=== PATIENT | female | born 1925 | race Caucasian/White ===

== ENCOUNTER 2016-06-27 12:13 | Inpatient (IN) | payer OTHER, MEDICARE ==
[~2016-06-27] VITALS: Ht 160 cm; Wt 61.3 kg
[2016-06-27 12:15] VITALS: BP 152/64; PULSE 72; RESP 16; TEMP 97.8; O2SAT 99
--- NOTE | 2016-06-27 12:19 | PD ---
Physical Exam Time Seen by Provider: 12:17 Narrative 89 y/o female presents for evaluation of an episode of dizziness which caused her to fall today. She is complaining of R ankle pain/deformity. Vital signs reviewed. Seen at triage desk. Awaiting bed placement. Data Data Last Documented VS Vital Signs Date Time Temp Pulse Resp B/P Pulse Ox O2 Delivery O2 Flow Rate FiO2 06/27/16 12:15 97.8 72 16 152/64 99 MDM Medical Record Reviewed: Yes Supervised Visit with WILLIAM: Gen Groves June 27, 2016 12:18
[2016-06-27 12:37] VITALS: BP 165/73; PULSE 69; RESP 18; O2SAT 100
--- NOTE | 2016-06-27 12:42 | PD ---
HPI Chief Complaint: Fall Time Seen by Provider: 12:36 Travel History International Travel<30 days: No Contact w/Intl Traveler<30days: No Traveled to known affect area: No History of Present Illness HPI Patient comes emergency Department for evaluation of right ankle injury that occurred shortly prior to arrival. Patient states she been standing for couple hours he got she dizzy and fell. Denies any loss of consciousness, chest pain, shortness of breath, nausea, vomiting, abdominal pain, headache, back pain, neck pain, being on any blood thinners other than a baby aspirin, or numbness or tingling anywhere. This was a witnessed fall and her friend is with her states that she did not lose consciousness. Patient called EMS who splinted her right ankle prior to her friend bringing her to the emergency department. Patient states that the bone appeared to be sticking out and she popped it back in herself. Patient reports minimal pain with this and does not want anything for pain at the moment. Patient states that the pain is over the lateral aspect of the right ankle without radiation. Patient reports last time she ate or drank anything was about 7:00 this morning. PFSH Past Medical History High Cholesterol: Yes Thyroid Disease: Yes ?: Not Social History Alcohol Use: Yes Tobacco Use: No Substance Use: No Allergies-Medications (Allergen,Severity, Reaction): Coded Allergies: No Known Allergies (Unverified , 06/27/16) Reported Meds & Prescriptions Reported Meds & Active Scripts Active Reported Aspirin Low Dose (Aspirin) 81 Mg Chew 81 Mg CHEW DAILY Levothyroxine (Levothyroxine Sodium) 25 Mcg Tab 25 Mcg PO DAILY Lovastatin 40 Mg Tab 40 Mg PO DAILY Review of Systems Except as stated in HPI: all other systems reviewed are Neg Physical Exam Narrative GENERAL: Well-developed, well nourished, in no acute distress, and non-ill appearing. SKIN: Focused skin assessment warm and dry. HEAD: Atraumatic. Normocephalic. EYES: Pupils equal and round. EOMI. No scleral icterus. No injection or drainage. ENT: No nasal bleeding or discharge. Mucous membranes pink and moist. NECK: Trachea midline. No JVD. Supple. No nuclear rigidity. CARDIOVASCULAR: Regular rate and rhythm. No murmur appreciated. RESPIRATORY: No accessory muscle use. No respiratory distress. Clear to auscultation. Breath sounds equal bilaterally. MUSCULOSKELETAL: Obvious deformities right ankle. No clubbing. No cyanosis. Soft tissue swelling right ankle. Decreased range of motion right ankle. Ankle : Neagative anterior draw and [place] test. Negative Michael's sign. Laxity noted with passive inversion of right ankle ankles. Negative squeeze test. Pulses equal BL distal to injury. Capillary refill less than 2 seconds distal to injury and equal BL. Sensation equal BL 1st web space. FROM of toes distal to injury and equal BL. NV intact distal to injury and equal BL. Dorsal pulses equal BL. Palpable bony deformity noted over the lateral aspect of right ankle. There is no crepitus. NEUROLOGICAL: Awake and alert. No obvious cranial nerve deficits. Motor grossly within normal limits. Normal speech. PSYCHIATRIC: Appropriate mood and affect; insight and judgment normal. Data Data Last Documented VS Vital Signs Date Time Temp Pulse Resp B/P Pulse Ox O2 Delivery O2 Flow Rate FiO2 06/27/16 12:37 69 18 165/73 100 Room Air 06/27/16 12:15 97.8 Orders Electrocardiogram (06/27/16 12:33) Basic Metabolic Panel (Bmp) (06/27/16 12:33) Complete Blood Count With Diff (06/27/16 12:33) Magnesium (Mg) (06/27/16 12:33) Ckmb (Isoenzyme) Profile (06/27/16 12:33) Troponin I (06/27/16 12:33) Act Partial Throm Time (Ptt) (06/27/16 12:33) Prothrombin Time / Inr (Pt) (06/27/16 12:33) Urinalysis - C+S If Indicated (06/27/16 12:33) Chest, Single Ap (06/27/16 12:33) Ct Brain W/O Iv Contrast(Rout) (06/27/16 12:33) Ct Cerv Spine W/O Contrast (06/27/16 12:33) Ecg Monitoring (06/27/16 12:33) Iv Access Insert/Monitor (06/27/16 12:33) Oximetry (06/27/16 12:33) Ankle, Complete ([id number]) (06/27/16 ) Ice/Cold Pack (06/27/16 12:37) Splint Or Brace Apply/Monitor (06/27/16 13:06) Midazolam Inj (Versed Inj) (06/27/16 13:30) Hydromorphone Pf Inj (Dilaudid Pf Inj) (06/27/16 13:30) Ondansetron Inj (Zofran Inj) (06/27/16 13:30) CKMB (06/27/16 12:39) CKMB% (06/27/16 12:39) Sodium Chlorid 0.9% 500 Ml Inj (Ns 500 M (06/27/16 13:45) Ankle, Limited (Ap&Lat) (06/27/16 ) Fiberglass Short Leg Splint Ad (06/27/16 ) Fiberglass Sugartong Sp Ad Sl (06/27/16 ) Place In Observation (06/27/16 ) Vital Signs (Adult) Q4H (06/27/16:) Activity Bed Rest (06/27/16 14:) Bedside Glucose LIBIA.AC&HS (06/27/16:) Metal Tube Cutter / Telemetry .CONTINUOUS (06/27/16:) Intake + Output LIBIA.QSHIFT (06/27/16 14:17) Diet Npo (06/27/16 Dinner) Sodium Chlor 0.9% 1000 Ml Inj (Ns 1000 M (06/27/16 15:00) Sodium Chloride 0.9% Flush (Ns Flush) (06/27/16 14:30) Sodium Chloride 0.9% Flush (Ns Flush) (06/27/16 21:00) Acetaminophen (Tylenol) (06/27/16 14:30) Ondansetron Inj (Zofran Inj) (06/27/16 14:30) Basic Metabolic Panel (Bmp) (06/28/16 06:00) Complete Blood Count With Diff (06/28/16 06:00) Resp Oxygen Rahat C Titrat 1-4 L (06/27/16 ) Heparin Inj (Heparin Inj) (06/27/16 15:00) Scd Bilateral/Knee High LIBIA.BID (06/27/16 14:17) Naloxone Inj (Narcan Inj) (06/27/16 14:30) Creatine Kinase (Cpk) (06/27/16 14:17) Creatine Kinase (Cpk) (06/27/16 20:17) Creatine Kinase (Cpk) (06/28/16 02:17) Ckmb (Isoenzyme) Profile (06/27/16 14:17) Ckmb (Isoenzyme) Profile (06/27/16 20:17) Ckmb (Isoenzyme) Profile (06/28/16 02:17) Troponin I (06/27/16 14:17) Troponin I (06/27/16 20:17) Troponin I (06/28/16 02:17) Echo 2d Comp W/Dopp(Routine) (06/27/16 ) Levothyroxine (Synthroid) (06/28/16 06:00) Pravastatin (Pravachol) (06/28/16 09:00) Enalaprilat Inj (Vasotec Inj) (06/27/16 14:30) Admit Order (Ed Use Only) (06/27/16 14:17) Acetamin-Hydrocod 325-5 Mg ([place]idden 5-325 (06/27/16 14:30) Acetamin-Hydrocod 325-7.5 Mg ([place]idden 7.5 (06/27/16 14:30) Morphine Inj (Morphine Inj) (06/27/16 14:30) Morphine Inj (Morphine Inj) (06/27/16 14:30) Us Carotid Arteries Comp Bilat (06/27/16 ) Labs Laboratory Tests Test 06/27/16 06/27/16 12:39 14:13 White Blood Count 6.0 TH/MM3 Red Blood Count 4.27 MIL/MM3 Hemoglobin 12.3 GM/DL Hematocrit 36.6 % Mean Corpuscular Volume 85.6 FL Mean Corpuscular Hemoglobin 28.9 PG Mean Corpuscular Hemoglobin 33.7 % Concent Red Cell Distribution Width 14.7 % Platelet Count 249 TH/MM3 Mean Platelet Volume 8.3 FL Neutrophils (%) (Auto) 67.4 % Lymphocytes (%) (Auto) 24.1 % Monocytes (%) (Auto) 6.5 % Eosinophils (%) (Auto) 1.1 % Basophils (%) (Auto) 0.9 % Neutrophils # (Auto) 4.1 TH/MM3 Lymphocytes # (Auto) 1.5 TH/MM3 Monocytes # (Auto) 0.4 TH/MM3 Eosinophils # (Auto) 0.1 TH/MM3 Basophils # (Auto) 0.1 TH/MM3 CBC Comment DIFF FINAL Differential Comment Prothrombin Time 11.1 SEC Prothromb Time International 1.0 RATIO Ratio Activated Partial 23.3 SEC Thromboplast Time Sodium Level 141 MEQ/L Potassium Level 3.9 MEQ/L Chloride Level 105 MEQ/L Carbon Dioxide Level 25.8 MEQ/L Anion Gap 10 MEQ/L Blood Urea Nitrogen 18 MG/DL Creatinine 0.91 MG/DL Estimat Glomerular Filtration 58 ML/MIN Rate Random Glucose 99 MG/DL Calcium Level 9.0 MG/DL Magnesium Level 2.4 MG/DL Total Creatine Kinase 148 U/L Creatine Kinase MB 3.2 NG/ML Troponin I LESS THAN 0.02 NG/ML Urine Color YELLOW Urine Turbidity HAZY Urine pH 5.5 Urine Specific [place] 1.018 Urine Protein TRACE mg/dL Urine Glucose (UA) NEG mg/dL Urine Ketones 10 mg/dL Urine Occult Blood NEG Urine Nitrite NEG Urine Bilirubin NEG Urine Urobilinogen LESS THAN 2.0 MG/DL Urine Leukocyte Esterase LARGE Urine RBC 2 /hpf Urine WBC 40 /hpf Urine WBC Clumps RARE Urine Squamous Epithelial 1 /hpf Cells Urine Transitional Epithelial <1 /hpf Cells Urine Bacteria MANY /hpf Urine Hyaline Casts 2 /lpf Urine Mucus MOD /lpf Microscopic Urinalysis Comment CULTURE INDICATED MDM Medical Decision Making Medical Screen Exam Complete: Yes Emergency Medical Condition: Yes Interpretation(s) EKG reviewed by Dr. Wren shows sinus rhythm with ventricular is 66. No STEMI. Differential Diagnosis Syncope, near-syncope, fracture, sprain, contusion, UTI, electrolyte abnormality , dehydration, other Narrative Course Discussed patient with Dr Wren who reviewed patient's x-rays recommend inpatient 0.5 of Dilaudid, splinting, admitting for likely surgical intervention. Recommends ordering 5mg of Versed for possible conscious sedation if needed for reduction. Patient was seen and examined. Initial radiological and laboratory studies were obtained and reviewed. Discussed all findings and plan of care with patient. Recommended patient to follow up outpatient for incidental findings of thyroid nodules noted on CT today. Patient verbalizes understanding of this. Patient was agreeable for admission. All questions were answered. Patient remained stable throughout her emergency department course. Physician Communication Physician Communication [address] Renae, who is agreeable to admit the patient. [address] Hunter, who recommends splinting, ice, elevation, patient be placed nothing by mouth after midnight and if medically cleared will take her to surgery tomorrow. Diagnosis Primary Impression: Near syncope Additional Impressions: Ankle fracture, right Qualified Code: S82.891A - Ankle fracture, right, closed, initial encounter UTI (urinary tract infection) Qualified Code: N39.0 - Urinary tract infection without hematuria, site unspecified Multiple thyroid nodules Admitting Information Admitting Physician Requests: Admit Condition: Stable Mukul Hanson June 27, 2016 12:42
[2016-06-27 13:00] LABS: AUTOMATED NEUTROPHIL # 4.1 TH/MM3 (1.8-7.7); BASOPHIL # 0.1 TH/MM3 (0-0.2); BASOPHIL % 0.9 % (0.0-2.0); EOSINOPHIL # 0.1 TH/MM3 (0-0.4); EOSINOPHIL % 1.1 % (0.0-4.0); HEMATOCRIT 36.6 % (35.0-46.0); HEMO FLAGS DIFF FINAL; LYMPH % 24.1 % (9.0-44.0); LYMPHOCYTE # 1.5 TH/MM3 (1.0-4.8); MEAN CELL VOLUME 85.6 FL (80.0-100.0); MEAN CORPUSCULAR HEMOGLOBIN 28.9 PG (27.0-34.0); MEAN CORPUSCULAR HGB CONC 33.7 % (32.0-36.0); MONO % 6.5 % (0.0-8.0); NEUT % 67.4 % (16.0-70.0); PLATELET COUNT 249 TH/MM3 (150-450); RED BLOOD COUNT 4.27 MIL/MM3 (4.00-5.30); RED CELL DISTRIBUTION WIDTH 14.7 % (11.6-17.2)
[2016-06-27 13:06] LABS: APTT (PATIENT) 23.3 SEC (24.3-30.1); PROTHROMBIN TIME - PATIENT 11.1 SEC (9.8-11.6)
[2016-06-27] MEDS ORDERED: LOVA40TA PO (13:06)
[2016-06-27] MEDS ORDERED: ASPI81CH37 CHEW (13:06)
[2016-06-27] MEDS ORDERED: LEVO25TA4 PO (13:06)
[2016-06-27 13:26] LABS: ANION GAP 10 MEQ/L (5-15); BICARBONATE 25.8 MEQ/L (21.0-32.0); BLOOD UREA NITROGEN 18 MG/DL (7-18); CHLORIDE 105 MEQ/L (98-107); GLOMERULAR FILTRATION RATE 58 ML/MIN (>89); MAGNESIUM 2.4 MG/DL (1.5-2.5); POTASSIUM 3.9 MEQ/L (3.5-5.1); SODIUM (NA) 141 MEQ/L (136-145)
[2016-06-27 13:30] LABS: CREATINE KINASE 148 U/L (26-192)
[2016-06-27] MEDS ORDERED: MIDAZOLAM HCL 2 MG/2 ML VIAL IV PUSH ONE (13:30)
[2016-06-27] MEDS ORDERED: ONDANSETRON HCL 4 MG/2 ML VIAL IV PUSH ONE (13:30)
[2016-06-27] MEDS ORDERED: HYDROmorphone HCL PF 1 MG/ML VIAL IV PUSH ONE (13:30)
[2016-06-27 13:43] LABS: CKMB 3.2 NG/ML (0.5-3.6)
--- NOTE | 2016-06-27 13:43 | RADRPT ---
EXAM DATE/TIME: 06/27/2016 12:58 [facility] COMPARISON: No previous studies available for comparison. INDICATIONS : Right ankle pain after fall. MEDICAL HISTORY : None. SURGICAL HISTORY : None. ENCOUNTER: Initial ACUITY: 1 day PAIN SCORE: 0/10 LOCATION: Right ankle. FINDINGS: Examination shows a moderately displaced bimalleolar fracture of the right ankle with no lateral amaral slocation of the hind foot relative to the tibia and fibula. There is approximately 1/2 shaft width d istal fibular displacement. A slight incongruity of the mortise. The visualized hindfoot is otherwise grossly intact. CONCLUSION: Moderately displaced bimalleolar fracture of the right ankle Jb Narayan MD on June 27, 2016 at 13:38 Board Certified Radiologist. This report was verified electronically.
[2016-06-27] MEDS ORDERED: SODIUM CHLORID 0.9% 500 ML INJ 500 ML IV ONE (13:45)
--- NOTE | 2016-06-27 13:47 | RADRPT ---
EXAM DATE/TIME: 06/27/2016 12:55 [facility] COMPARISON: No previous studies available for comparison. INDICATIONS : syncope. MEDICAL HISTORY : None. SURGICAL HISTORY : None. ENCOUNTER: Initial ACUITY: 1 day PAIN SCORE: 0/10 LOCATION: Bilateral chest FINDINGS: A single view of the chest demonstrates the lungs to be symmetrically aerated without evidence of mas s, infiltrate or effusion. The cardiomediastinal contours are unremarkable. Osseous structures are intact. CONCLUSION: 1. No acute cardiopulmonary findings Antony Perez MD on June 27, 2016 at 13:43 Board Certified Radiologist. This report was verified electronically.
--- NOTE | 2016-06-27 14:07 | RADRPT ---
EXAM DATE/TIME: 06/27/2016 13:56 [facility] COMPARISON: No previous studies available for comparison. INDICATIONS : Fall, dizziness. RADIATION DOSE: 56.37 CTDIvol (mGy) MEDICAL HISTORY : None SURGICAL HISTORY : None. ENCOUNTER: Initial ACUITY: 1 day PAIN SCALE: 0/10 LOCATION: cranial TECHNIQUE: Multiple contiguous axial images were obtained of the head. Using automated exposure control and adj ustment of the mA and/or kV according to patient size, radiation dose was kept as low as reasonably a chievable to obtain optimal diagnostic quality images. FINDINGS: CEREBRUM: Mild age-related volume loss is noted. No evidence of midline shift, mass lesion, hemorrhage or acut e infarction. No extra-axial fluid collections are seen. Minimal periventricular/subcortical white m atter small vessel ischemic changes are noted. POSTERIOR FOSSA: The cerebellum and brainstem are intact. The 4th ventricle is midline. The cerebellopontine angle i s unremarkable. EXTRACRANIAL: The visualized portion of the orbits is intact. SKULL: The calvaria is intact. No evidence of skull fracture. CONCLUSION: 1. No acute infarct, acute hemorrhage, mass effect or extra-axial fluid collections. 2. Mild age-related volume loss. 3. Minimal periventricular/subcortical white matter small vessel ischemic changes bilaterally. Andrea Heredia MD on June 27, 2016 at 14:03 Board Certified Radiologist. This report was verified electronically.
--- NOTE | 2016-06-27 14:28 | RADRPT ---
EXAM DATE/TIME: 06/27/2016 13:42 [facility] COMPARISON: ANKLE RIGHT COMPLETE ([id number]), June 27, 2016, 12:58. INDICATIONS : Post reduction of the right ankle. MEDICAL HISTORY : None. SURGICAL HISTORY : None. ENCOUNTER: Subsequent ACUITY: 1 day PAIN SCORE: 0/10 LOCATION: Right distal ankle. FINDINGS: The examination demonstrates a bimalleolar fracture. There is approximately 50% displacement of the l ateral malleolus. There is approximately 10-15% displacement of the medial malleolus. Alignment is si milar to the initial film timed at 12: 58 hours.. CONCLUSION: 1. Bimalleolar fracture as above. Antony Perez MD on June 27, 2016 at 14:25 Board Certified Radiologist. This report was verified electronically.
[2016-06-27] MEDS ORDERED: SODIUM CHLORIDE 0.9% FLUSH 10 ML FLUSH IV FLUSH PRN (14:30)
[2016-06-27] MEDS ORDERED: MORPHINE SULFATE 4 MG/ML INJ IV PRN ×2 (14:30)
[2016-06-27] MEDS ORDERED: ACETAMINOPHEN/HYDROcodone 325 MG/5 MG TAB PO PRN (14:30)
[2016-06-27] MEDS ORDERED: NALOXONE HCL 0.4 MG/ML AMP IV PRN (14:30)
[2016-06-27] MEDS ORDERED: ENALAPRILAT 1.25 MG/ML VIAL IV PUSH PRN (14:30)
[2016-06-27] MEDS ORDERED: ACETAMINOPHEN 325 MG TAB PO PRN (14:30)
[2016-06-27] MEDS ORDERED: ONDANSETRON HCL 4 MG/2 ML VIAL IVP PRN (14:30)
[2016-06-27] MEDS ORDERED: ACETAMINOPHEN/HYDROcodone 325 MG/7.5 MG TAB PO PRN (14:30)
[2016-06-27 14:33] LABS: BACTERIA, URINE MANY /hpf; BLOOD, URINE NEG (NEG); COMMENT (UR) CULTURE INDICATED; CULTURE IF INDICATED CULTURE INDICATED; GLUCOSE,URINE NEG (NEG); HYALINE CAST, URINE 2 /lpf (RARE); KETONE, URINE 10 mg/dL (NEG); MUCUS URINE MOD /lpf (OCC); NITRITE,URINE NEG (NEG); PH, URINE 5.5 (5.0-8.5); SQUAMOUS EPITHELIAL CELL URINE 1 /hpf (0-5); TRANSITIONAL EPI CELLS, URINE <1 /hpf; URINE COLOR YELLOW (YELLW/STRAW)
[2016-06-27] MEDS ORDERED: cefTRIAXone INJ 1,000 MG in SODIUM CHLORIDE 0.9% INJ 100 ML IV ONE (14:45)
[2016-06-27] MEDS: HEPARIN SODIUM - SQ 10,000 UNITS/ML VIAL SQ SCH ×2 (15:05→22:14)
[2016-06-27] MEDS: SODIUM CHLOR 0.9% 1000 ML INJ 1,000 ML IV SCH ×2 (15:05→16:42)
--- NOTE | 2016-06-27 15:15 | HHI.HP ---
[facility] Service [facility] Primary Care Physician Dereck Ramirez MD Admission Diagnosis near syncope, right ankle fracture Diagnoses: Chief Complaint: Dizziness and falling down the right ankle pain Travel History International Travel<30 Days: No Contact w/Intl Traveler <30 Da: No Traveled to Known Affected Are: No History of Present Illness 89 years old female with history of hyperlipidemia hypothyroidism presented to the ED complaining of episodes of dizziness which make her fall down patient denied losing consciousness, denied feeling chest in palpitation short of breath , headache blurry vision prior to the episode. Patient complained of right ankle pain and with x-ray it did showed fracture. Patient stated that the bone appeared to be sticking out so she popped it and again. Currently no other symptoms such as abdominal pain diarrhea constipation dysuria urgency frequency , orthopedic consulted stabilizing casts applied, plan for surgery tomorrow if cleared medically Review of Systems All systems reviewed and was positive for what is mentioned in history of present illness otherwise negative Past Family Social History Past Medical History Hyperlipidemia and hypothyroidism denied any other medical problem Past Surgical History None Allergies: Coded Allergies: No Known Allergies (Unverified , 06/27/16) Family History Review with the patient,not aware of significant medical history runs in his family Social History Patient drinks 1 drink mostly wine daily no alcohol or illicit drug abuse Physical Exam Vital Signs Vital Signs Date Time Temp Pulse Resp B/P Pulse Ox O2 Delivery O2 Flow Rate FiO2 06/27/16 12:37 69 18 165/73 100 Room Air 06/27/16 12:37 100 Room Air 06/27/16 12:15 97.8 72 16 152/64 99 Physical Exam GENERAL: This is a well-nourished, well-developed patient, in no apparent distress. SKIN: No rashes, ecchymoses or lesions. Cool and dry. HEAD: Atraumatic. Normocephalic. No temporal or scalp tenderness. EYES: Pupils equal round and reactive. Extraocular motions intact. No scleral icterus. No injection or drainage. ENT: Nose without bleeding, purulent drainage or septal hematoma. Throat without erythema, tonsillar hypertrophy or exudate. Uvula midline. Airway patent. NECK: Trachea midline. No JVD or lymphadenopathy. Supple, nontender, no meningeal signs. CARDIOVASCULAR: Regular rate and rhythm without murmurs, gallops, or rubs. RESPIRATORY: Clear to auscultation. Breath sounds equal bilaterally. No wheezes , rales, or rhonchi. GASTROINTESTINAL: Abdomen soft, non-tender, nondistended. No hepato-splenomegaly , or palpable masses. No guarding. MUSCULOSKELETAL: Right lower extremity in cast, left lower extremity no edema or cyanosis bilaterally. NEUROLOGICAL: Awake and alert. Cranial nerves II through XII intact. Motor and sensory grossly within normal limits. Five out of 5 muscle strength in all muscle groups except right lower extremity due to the fracture. Normal speech. Laboratory Laboratory Tests Test 06/27/16 06/27/16 12:39 14:13 White Blood Count 6.0 Red Blood Count 4.27 Hemoglobin 12.3 Hematocrit 36.6 Mean Corpuscular Volume 85.6 Mean Corpuscular Hemoglobin 28.9 Mean Corpuscular Hemoglobin 33.7 Concent Red Cell Distribution Width 14.7 Platelet Count 249 Mean Platelet Volume 8.3 Neutrophils (%) (Auto) 67.4 Lymphocytes (%) (Auto) 24.1 Monocytes (%) (Auto) 6.5 Eosinophils (%) (Auto) 1.1 Basophils (%) (Auto) 0.9 Neutrophils # (Auto) 4.1 Lymphocytes # (Auto) 1.5 Monocytes # (Auto) 0.4 Eosinophils # (Auto) 0.1 Basophils # (Auto) 0.1 CBC Comment DIFF FINAL Differential Comment Prothrombin Time 11.1 Prothromb Time International 1.0 Ratio Activated Partial 23.3 Thromboplast Time Sodium Level 141 Potassium Level 3.9 Chloride Level 105 Carbon Dioxide Level 25.8 Anion Gap 10 Blood Urea Nitrogen 18 Creatinine 0.91 Estimat Glomerular Filtration 58 Rate Random Glucose 99 Calcium Level 9.0 Magnesium Level 2.4 Total Creatine Kinase 148 Creatine Kinase MB 3.2 Troponin I LESS THAN 0.02 Urine Color YELLOW Urine Turbidity HAZY Urine pH 5.5 Urine Specific [place] 1.018 Urine Protein TRACE Urine Glucose (UA) NEG Urine Ketones 10 Urine Occult Blood NEG Urine Nitrite NEG Urine Bilirubin NEG Urine Urobilinogen LESS THAN 2.0 Urine Leukocyte Esterase LARGE Urine RBC 2 Urine WBC 40 Urine WBC Clumps RARE Urine Squamous Epithelial 1 Cells Urine Transitional Epithelial <1 Cells Urine Bacteria MANY Urine Hyaline Casts 2 Urine Mucus MOD Microscopic Urinalysis Comment CULTURE INDICATED Date/Time Procedure Status Source Growth 06/27/16 14:13 Urine Culture Received Urine Random Urine Pending Result Diagram: 06/27/16 1239 06/27/16 1239 Imaging Last Impressions Head CT 06/27/16 1233 Signed Impressions: Service Date/Time: Monday, June 27, 2016 13:56 - CONCLUSION: 1. No acute infarct, acute hemorrhage, mass effect or extra-axial fluid collections. 2. Mild age-related volume loss. 3. Minimal periventricular/subcortical white matter small vessel ischemic changes bilaterally. Andrea Heredia MD Chest X-Ray 06/27/16 1233 Signed Impressions: Service Date/Time: Monday, June 27, 2016 12:55 - CONCLUSION: 1. No acute cardiopulmonary findings Antony Perez MD Carotid Artery Ultrasound 06/27/16 0000 Signed Impressions: Service Date/Time: Monday, June 27, 2016 14:43 - CONCLUSION: No evidence of flow-limiting carotid stenosis. Jb Narayan MD Ankle X-Ray 06/27/16 0000 Signed Impressions: Service Date/Time: Monday, June 27, 2016 13:42 - CONCLUSION: 1. Bimalleolar fracture as above. Antony Perez MD Assessment and Plan Assessment and Plan 89 years old female history of hyperlipidemia and hypothyroidism admitted with Episode of dizziness presyncope could be related to UTI UTI Status post fall right ankle fracture History of hypertension History of hypothyroidism DVT prophylaxis Plan: Admit to inpatient, pain management with [place] and morphine Orthopedic consulted, stabilizing cast and surgery in a.m. if cleared Patient denied any complain of chest pain or short of breath on exertion she stated she is able to walk more than 4 blocks or 2 stairs okay, we'll check 2-D echo and carotid ultrasound, continue cycling cardiac enzyme, if these are normal patient can be mild to moderate risk Rocephin for UTI Vasotec when necessary for hypertension Morphine and SCD for DVT prophylaxis Discussed Condition With Patient in ED PA Physician Certification 2 Midnight Certification Type: Admission for Inpatient Services Order for Inpatient Services The services are ordered in accordance with Medicare regulations or non- Medicare payer requirements, as applicable. In the case of services not specified as inpatient-only, they are appropriately provided as inpatient services in accordance with the 2-midnight benchmark. Estimated LOS (days): 2 days is the estimated time the patient will need to remain in the hospital, assuming treatment plan goals are met and no additional complications. Post-Hospital Plan: [facility] Marvin Renae MD June 27, 2016 15:15
--- NOTE | 2016-06-27 15:35 | RADRPT ---
EXAM DATE/TIME: 06/27/2016 13:59 [facility] COMPARISON: No previous studies available for comparison. INDICATIONS : Trauma; fall, neck pain. RADIATION DOSE: 28.45 CTDIvol (mGy) MEDICAL HISTORY : None SURGICAL HISTORY : None. ENCOUNTER: Initial ACUITY: 1 day PAIN SCALE: 4/10 LOCATION: Neck TECHNIQUE: Volumetric scanning of the cervical spine was performed. Multiplanar reconstructions in the sagittal, coronal and oblique axial planes were performed. Using automated exposure control and adjustment o f the mA and/or kV according to patient size, radiation dose was kept as low as reasonably achievable to obtain optimal diagnostic quality images. FINDINGS: There is no acute fracture or prevertebral soft tissue swelling. There is Grade I retrolisthesis of C5 in relation to C6. Cervical spondylosis is noted at C4-5, C5-6 and to a lesser extent at C3-4 and C6-7. The bony relationship and alignment between C1 and C2 is well maintained. Minimal status spi nal stenosis is noted at C5-6. Moderate bilateral foraminal narrowing is also noted at C5-6. Mild b ilateral foraminal narrowing is noted at C3-4. Calcified pleural plaques are noted within the lung a pices bilaterally. Multiple thyroid nodules are noted. Thyroid ultrasound may be helpful for furthe r evaluation if clinically indicated. CONCLUSION: 1. No acute fracture or prevertebral soft tissue swelling. 2. Minimal spinal stenosis and moderate bilateral foraminal narrowing at C5-6. 3. Mild bilateral foraminal narrowing at C3-4. 4. Grade I retrolisthesis of C5 in relation to C6. 5. Cervical spondylosis at C4-5, C5-6 and to a lesser extent at C3-4 and C6-7. 6. 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 7. Multiple thyroid nodules noted. Thyroid ultrasound may be helpful for further evaluation if clini anabella indicated and can be performed as an outpatient. Andrea Heredia MD on June 27, 2016 at 15:15 Board Certified Radiologist. This report was verified electronically.
--- NOTE | 2016-06-27 16:57 | RADRPT ---
EXAM DATE/TIME: 06/27/2016 14:43 [facility] COMPARISON: No previous studies available for comparison. INDICATIONS : Presyncope. MEDICAL HISTORY : Hypercholesterolemia. Thyroid disease. Anticoagulant therapy, Aspirin 81mg. SURGICAL HISTORY : No known previous surgical history. ENCOUNTER: Initial ACUITY: 1 day PAIN SCORE: 0/10 LOCATION: Bilateral neck PEAK SYSTOLIC VELOCITIES (cm/sec): ICA/CCA RATIO: Right: 1.1 Left: 0.6 ICA: Right: 111 Left: 89 CCA: Right: 102 Left: 144 ECA: Right: 60 Left: 69 VERTEBRAL: Right: 61 antegrade Left: 79 antegrade Elevated flow velocities and ICA/CCA ratios have been found to correlate with increased degrees of vessel stenosis, calculated as percentage of diameter relative to a normal segment of distal ICA/CCA FINDINGS: RIGHT CAROTID: No significant stenosis is visualized. The waveforms are within normal limits. LEFT CAROTID: No significant stenosis is visualized. The waveforms are within normal limits. VERTEBRAL ARTERIES: Antegrade flow is seen in both vertebral arteries. MISCELLANEOUS: None. CONCLUSION: No evidence of flow-limiting carotid stenosis. Jb Narayan MD on June 27, 2016 at 16:54 Board Certified Radiologist. This report was verified electronically.
[2016-06-27 17:01] VITALS: BP 139/63; PULSE 62; RESP 16; TEMP 97.4; O2SAT 97
[2016-06-27 17:25] LABS: CREATINE KINASE 134 U/L (26-192)
[2016-06-27 17:38] LABS: CKMB 2.6 NG/ML (0.5-3.6)
[2016-06-27] MEDS ORDERED: diphenhydrAMINE HCL 25 MG CAP PO ONE (20:15)
[2016-06-27 20:54] VITALS: BP 136/58; PULSE 65; RESP 18; TEMP 97.7; O2SAT 97
[2016-06-27] MEDS: SODIUM CHLORIDE 0.9% FLUSH 10 ML FLUSH IV FLUSH SCH (22:14)
[2016-06-27] MEDS ORDERED: INSULIN HUMAN REGULAR 1,000 UNITS/10 ML VIAL SQ PRN (23:15)
[2016-06-27] MEDS ORDERED: POVIDONE IODINE 5% (ANTISEPSIS KIT) 4 APPLICATIONS EACH NARE PRN (23:15)
[2016-06-27] MEDS ORDERED: LACTATED RINGER'S 1000 ML IV PRN (23:15)
[2016-06-27] MEDS ORDERED: SODIUM CHLORID 0.9% 500 ML IV PRN (23:15)
[2016-06-27] MEDS ORDERED: CHLORHEXIDINE GLUCONATE 2 % 1 PACK (2 CLOTHS) TOPICAL PRN (23:15)
[2016-06-27] MEDS ORDERED: METOPROLOL TARTRATE 25 MG TAB PO PRN (23:15)
[2016-06-27 23:50] LABS: CREATINE KINASE 173 U/L (26-192)
[2016-06-28] VITALS (7 sets, daily range): BP systolic 104–143; BP diastolic 51–65; PULSE 65–75; RESP 16–17; TEMP 96.2–97.8; O2SAT 95–98
[2016-06-28 00:03] LABS: CKMB 2.8 NG/ML (0.5-3.6)
[2016-06-28] MEDS: LEVOTHYROXINE SODIUM 25 MCG TAB PO SCH (04:31)
[2016-06-28] MEDS: HEPARIN SODIUM - SQ 10,000 UNITS/ML VIAL SQ SCH (04:31)
[2016-06-28 05:04] LABS: AUTOMATED NEUTROPHIL # 4.1 TH/MM3 (1.8-7.7); BASOPHIL % 0.8 % (0.0-2.0); EOSINOPHIL % 0.3 % (0.0-4.0); HEMATOCRIT 29.9 % (35.0-46.0); HEMO FLAGS DIFF FINAL; LYMPH % 18.7 % (9.0-44.0); LYMPHOCYTE # 1.1 TH/MM3 (1.0-4.8); MEAN CELL VOLUME 85.2 FL (80.0-100.0); MEAN CORPUSCULAR HEMOGLOBIN 28.3 PG (27.0-34.0); MEAN CORPUSCULAR HGB CONC 33.3 % (32.0-36.0); MONO % 8.8 % (0.0-8.0); NEUT % 71.4 % (16.0-70.0); PLATELET COUNT 188 TH/MM3 (150-450); RED BLOOD COUNT 3.51 MIL/MM3 (4.00-5.30); RED CELL DISTRIBUTION WIDTH 14.5 % (11.6-17.2); WHITE BLOOD COUNT 5.7 TH/MM3 (4.0-11.0)
[2016-06-28 05:24] LABS: ANION GAP 5 MEQ/L (5-15); BICARBONATE 25.7 MEQ/L (21.0-32.0); BLOOD UREA NITROGEN 15 MG/DL (7-18); CHLORIDE 108 MEQ/L (98-107); GLOMERULAR FILTRATION RATE 81 ML/MIN (>89); POTASSIUM 3.8 MEQ/L (3.5-5.1); SODIUM (NA) 139 MEQ/L (136-145)
[2016-06-28 05:27] LABS: CREATINE KINASE 186 U/L (26-192)
[2016-06-28 05:39] LABS: CKMB 2.6 NG/ML (0.5-3.6)
[2016-06-28] MEDS ORDERED: ceFAZolin INJ 1,000 MG VIAL ONE (08:30)
[2016-06-28] MEDS ORDERED: GENTAMICIN SULFATE 80 MG/2 ML VIAL ONE (08:30)
[2016-06-28] MEDS: PRAVASTATIN SOD 40 MG TAB PO SCH (09:00)
[2016-06-28] MEDS: SODIUM CHLORIDE 0.9% FLUSH 10 ML FLUSH IV FLUSH SCH (09:00)
--- NOTE | 2016-06-28 09:04 | EC ---
Study Study Date:06/27/2016 STUDY CONCLUSIONS SUMMARY - Procedure narrative: Transthoracic echocardiography. Image quality was fair. Scanning was performed from the parasternal, apical, and subcostal acoustic windows. - Left ventricle: The cavity size was normal. Wall thickness was normal. Systolic function was vigorous. The estimated ejection fraction was in the range of 65% to 70%. Wall motion was normal; there were no regional wall motion abnormalities. - Aortic valve: Trileaflet; possible minimal leaflet sclerosis. - Mitral valve: Trace regurgitation. - Tricuspid valve: Mild regurgitation. If LV function is below 40, please consider prescribing an ACEI or ARB or document rationale for non-use. PROCEDURE DATA STUDY STATUS: Elective. Procedure: Transthoracic echocardiography. Image quality was fair. Scanning was performed from the parasternal, apical, and subcostal acoustic windows. Study completion: The patient tolerated the procedure well. Transthoracic echocardiography. M-mode, complete 2D, complete spectral Doppler, and color Doppler. Height: Height: 63in. Weight: Weight: 120.7lb. Body mass index: BMI: 21.4kg/m^2. Body surface area: BSA: 1.56m^2. Patient status: Inpatient. CARDIAC ANATOMY LEFT VENTRICLE: The cavity size was normal. Wall thickness was normal. Systolic function was vigorous. The estimated ejection fraction was in the range of 65% to 70%. Wall motion was normal; there were no regional wall motion abnormalities. AORTIC VALVE: Trileaflet; possible minimal leaflet sclerosis. Doppler: Transvalvular velocity was within the normal range. There was no stenosis. No regurgitation. Indexed valve area: 1.49cm^2/m^2 (Vmax). AORTA: Aortic root: The aortic root was normal in size. MITRAL VALVE: Structurally normal valve. Doppler: Transvalvular velocity was within the normal range. There was no evidence for stenosis. Trace regurgitation. Valve area by pressure half-time: 3.38cm^2. Indexed valve area by pressure half-time: 2.17cm^2/m^2. Peak gradient: 3mm Hg (D). LEFT ATRIUM: The atrium was normal in size. RIGHT VENTRICLE: The cavity size was normal. Wall thickness was normal. PULMONIC VALVE: Doppler: Transvalvular velocity was within the normal range. There was no evidence for stenosis. No regurgitation. TRICUSPID VALVE: Structurally normal valve. Doppler: Transvalvular velocity was within the normal range. Mild regurgitation. Peak gradient: 21mm Hg (D). PULMONARY ARTERY: The main pulmonary artery was normal-sized. Systolic pressure was within the normal range. RIGHT ATRIUM: The atrium was normal in size. PERICARDIUM: There was no pericardial effusion. SYSTEMIC VEINS: Inferior vena cava: The vessel was normal in size. Patient weight: 120.7lb _Ejection fraction:_ 65-75% _Fractional shortening:_ 32% up to 5Kg 5-11.5Kg 11.6-22.9Kg 23-45Kg 45-57Kg Aortic Root 7-13 <17 13-22 17-27 17-27 LA diam 6-13 <23 24-38 33-47 37-40 RVID 10-17 7-15 7-15 7-18 8-17 LVIDd 12-22 <32 24-38 33-47 37-40 LVPW 2-4 3-6 5-7 6-8 7-8 IVS 2-4 3-6 5-7 6-8 7-8 BASIC MEASUREMENTS ADULT NORMAL Left ventricle LV internal dimension, ED, chordal 44.8 mm 43-52 level, PLAX LV internal dimension, ES, chordal 29.8 mm 23-38 level, PLAX Fractional shortening, chordal level, 33 % >29 PLAX LV posterior wall thickness, ED 9.9 mm IVS/LVPW ratio, ED 1.01 <1.3 Ventricular septum Septal thickness, ED 9.98 mm Aortic valve Leaflet separation 20 mm 15-26 Left atrium Anterior-posterior dimension 36 mm Anterior-posterior dimension index *2.31 cm/m^2 <2.2 Right ventricle RV internal dimension, ED, PLAX 24.6 mm 19-38 BASIC MEASUREMENTS ADULT NORMAL Aortic valve Leaflet separation 20 mm 15-26 Aorta Root diameter, ED 29 mm 20-37 DOPPLER MEASUREMENTS ADULT NORMAL Aortic valve Peak velocity, S 121 cm/s Valve area index, Vmax 1.49 cm^2/m^2 Mitral valve Peak E-wave velocity 90.8 cm/s Peak A-wave velocity 90.3 cm/s Pressure half-time 65 ms Peak gradient, D 3 mm Hg Peak E/A ratio 1 Valve area, pressure half-time 3.38 cm^2 Valve area index, pressure half-time 2.17 cm^2/m^2 Tricuspid valve Peak gradient, D 21 mm Hg Maximal inflow velocity 230 cm/s Systemic veins Estimated CVP 10 mm Hg Pulmonic valve Peak velocity, S 95 cm/s LEGEND: Mean values are shown as u=mean value. Asterisk (*) liu values outside specified normal range. Prepared and signed by Madhav Quach [id number]
[2016-06-28] MEDS: THIAMINE HCL 100 MG TAB PO SCH (09:15)
[2016-06-28] MEDS ORDERED: FAMOTIDINE 20 MG/2 ML VIAL ONE (09:32)
[2016-06-28] MEDS ORDERED: ACETAMINOPHEN 1000 MG/100 ML VIAL IV ONE (09:32)
--- NOTE | 2016-06-28 09:45 | HHI.PR ---
Subjective Remarks Follow up on presyncope and right ankle fracture Today patient is Stable no acute issue, going for ankle surgery today, I reviewed her 2-D echo and carotid ultrasound both unremarkable Objective Vitals Vital Signs Date Time Temp Pulse Resp B/P Pulse Ox O2 Delivery O2 Flow Rate FiO2 06/28/16 04:35 96.9 66 17 142/61 97 06/28/16 00:30 96.8 65 17 130/60 95 06/27/16 20:54 97.7 65 18 136/58 97 06/27/16 17:01 97.4 62 16 139/63 97 06/27/16 12:37 69 18 165/73 100 Room Air 06/27/16 12:37 100 Room Air 06/27/16 12:15 97.8 72 16 152/64 99 I/O 06/27/16 06/27/16 06/27/16 06/28/16 06/28/16 06/28/16 07:00 15:00 23:00 07:00 15:00 23:00 Intake Total 0 ml Balance 0 ml Intake Oral 0 ml # Voids 1 1 # Bowel Movements 0 Result Diagram: 06/28/16 0425 06/28/16 0425 Objective Remarks GENERAL: This is a well-nourished, well-developed patient, in no apparent distress. SKIN: No rashes, ecchymoses or lesions. Cool and dry. HEAD: Atraumatic. Normocephalic. No temporal or scalp tenderness. EYES: Pupils equal round and reactive. Extraocular motions intact. No scleral icterus. No injection or drainage. ENT: Nose without bleeding, purulent drainage or septal hematoma. Throat without erythema, tonsillar hypertrophy or exudate. Uvula midline. Airway patent. NECK: Trachea midline. No JVD or lymphadenopathy. Supple, nontender, no meningeal signs. CARDIOVASCULAR: Regular rate and rhythm without murmurs, gallops, or rubs. RESPIRATORY: Clear to auscultation. Breath sounds equal bilaterally. No wheezes , rales, or rhonchi. GASTROINTESTINAL: Abdomen soft, non-tender, nondistended. No hepato-splenomegaly , or palpable masses. No guarding. MUSCULOSKELETAL: Right lower extremity in cast, left lower extremity no edema or cyanosis bilaterally. NEUROLOGICAL: Awake and alert. Cranial nerves II through XII intact. Motor and sensory grossly within normal limits. Five out of 5 muscle strength in all muscle groups except right lower extremity due to the fracture. Normal speech. A/P Assessment and Plan GENERAL: This is a well-nourished, well-developed patient, in no apparent distress. SKIN: No rashes, ecchymoses or lesions. Cool and dry. HEAD: Atraumatic. Normocephalic. No temporal or scalp tenderness. EYES: Pupils equal round and reactive. Extraocular motions intact. No scleral icterus. No injection or drainage. ENT: Nose without bleeding, purulent drainage or septal hematoma. Throat without erythema, tonsillar hypertrophy or exudate. Uvula midline. Airway patent. NECK: Trachea midline. No JVD or lymphadenopathy. Supple, nontender, no meningeal signs. CARDIOVASCULAR: Regular rate and rhythm without murmurs, gallops, or rubs. RESPIRATORY: Clear to auscultation. Breath sounds equal bilaterally. No wheezes , rales, or rhonchi. GASTROINTESTINAL: Abdomen soft, non-tender, nondistended. No hepato-splenomegaly , or palpable masses. No guarding. MUSCULOSKELETAL: Right lower extremity in cast, left lower extremity no edema or cyanosis bilaterally. NEUROLOGICAL: Awake and alert. Cranial nerves II through XII intact. Motor and sensory grossly within normal limits. Five out of 5 muscle strength in all muscle groups except right lower extremity due to the fracture. Normal speech. Laboratory Laboratory Tests Test 06/27/16 06/27/16 12:39 14:13 White Blood Count 6.0 Red Blood Count 4.27 Hemoglobin 12.3 Hematocrit 36.6 Mean Corpuscular Volume 85.6 Mean Corpuscular Hemoglobin 28.9 Mean Corpuscular Hemoglobin 33.7 Concent Red Cell Distribution Width 14.7 Platelet Count 249 Mean Platelet Volume 8.3 Neutrophils (%) (Auto) 67.4 Lymphocytes (%) (Auto) 24.1 Monocytes (%) (Auto) 6.5 Eosinophils (%) (Auto) 1.1 Basophils (%) (Auto) 0.9 Neutrophils # (Auto) 4.1 Lymphocytes # (Auto) 1.5 Monocytes # (Auto) 0.4 Eosinophils # (Auto) 0.1 Basophils # (Auto) 0.1 CBC Comment DIFF FINAL Differential Comment Prothrombin Time 11.1 Prothromb Time International 1.0 Ratio Activated Partial 23.3 Thromboplast Time Sodium Level 141 Potassium Level 3.9 Chloride Level 105 Carbon Dioxide Level 25.8 Anion Gap 10 Blood Urea Nitrogen 18 Creatinine 0.91 Estimat Glomerular Filtration 58 Rate Random Glucose 99 Calcium Level 9.0 Magnesium Level 2.4 Total Creatine Kinase 148 Creatine Kinase MB 3.2 Troponin I LESS THAN 0.02 Urine Color YELLOW Urine Turbidity HAZY Urine pH 5.5 Urine Specific Drury 1.018 Urine Protein TRACE Urine Glucose (UA) NEG Urine Ketones 10 Urine Occult Blood NEG Urine Nitrite NEG Urine Bilirubin NEG Urine Urobilinogen LESS THAN 2.0 Urine Leukocyte Esterase LARGE Urine RBC 2 Urine WBC 40 Urine WBC Clumps RARE Urine Squamous Epithelial 1 Cells Urine Transitional Epithelial <1 Cells Urine Bacteria MANY Urine Hyaline Casts 2 Urine Mucus MOD Microscopic Urinalysis Comment CULTURE INDICATED Date/Time Procedure Status Source Growth 06/27/16 14:13 Urine Culture Received Urine Random Urine Pending Result Diagram: 06/27/16 1239 06/27/16 1239 Imaging Last Impressions Head CT 06/27/16 1233 Signed Impressions: Service Date/Time: Monday, June 27, 2016 13:56 - CONCLUSION: 1. No acute infarct, acute hemorrhage, mass effect or extra-axial fluid collections. 2. Mild age-related volume loss. 3. Minimal periventricular/subcortical white matter small vessel ischemic changes bilaterally. Andrea Heredia MD Chest X-Ray 06/27/16 1233 Signed Impressions: Service Date/Time: Monday, June 27, 2016 12:55 - CONCLUSION: 1. No acute cardiopulmonary findings Antony Perez MD Carotid Artery Ultrasound 06/27/16 0000 Signed Impressions: Service Date/Time: Monday, June 27, 2016 14:43 - CONCLUSION: No evidence of flow-limiting carotid stenosis. Jb Narayan MD Ankle X-Ray 06/27/16 0000 Signed Impressions: Service Date/Time: Monday, June 27, 2016 13:42 - CONCLUSION: 1. Bimalleolar fracture as above. Antony Perze MD Assessment and Plan Assessment and Plan 89 years old female history of hyperlipidemia and hypothyroidism admitted with Episode of dizziness presyncope could be related to UTI UTI Status post fall right ankle fracture History of hypertension History of hypothyroidism DVT prophylaxis Plan: Going for surgical repair for the right ankle today 2-D echo reviewed personally by me EF 70%, carotid ultrasound unremarkable pain management with Eastman and morphine Orthopedic consulted, stabilizing cast and surgery in a.m. if cleared Patient denied any complain of chest pain or short of breath on exertion she stated she is able to walk more than 4 blocks or 2 stairs okay, cycling cardiac enzyme was negative, Rocephin for UTI Vasotec when necessary for hypertension Morphine and SCD for DVT prophylaxis Marvin Renae MD June 28, 2016 09:44
[2016-06-28] MEDS ORDERED: ONDANSETRON HCL 4 MG/2 ML VIAL IV PUSH ONE (12:00)
[2016-06-28] MEDS ORDERED: PROPOFOL 200 MG/20 ML AMP IV ONE (12:00)
[2016-06-28] MEDS ORDERED: LACTATED RINGER'S 1000 ML INJ 1,000 ML IV ONE (12:00)
[2016-06-28] MEDS ORDERED: ePHEDrine/NS 25 MG/5 ML SYR IV ONE (12:00)
[2016-06-28] MEDS: LACTATED RINGER'S 1000 ML INJ 1,000 ML IV SCH ×2 (12:16→22:12)
--- NOTE | 2016-06-28 12:28 | PD.OP ---
cc: Varun Guerrier MD Operative Report Date of Surgery: June 28, 2016 Preoperative Diagnosis: Right ankle bimalleolar ankle fracture Postoperative Diagnosis: Right ankle pilon variant with lateral malleolar fracture Procedure: Open treatment into fixation right distal tibia fracture, pilon variant with open treatment internal fixation right ankle fracture Anesthesia: Gen. Surgeon: Varun Guerrier Case Work Aide(s): JORGE Starks Operation and Findings: EBL: 50 cc INDICATION: Patient is an 89-year-old female who had a syncopal episode yesterday. She fell sustaining what appeared be a bimalleolar or trimalleolar equivalent fracture of the ankle. She is felt to be a candidate for open treatment internal fixation. NOTE: Emily Starks PA-C was present for the entire surgical procedure as my assistant wrestling coach. In my medical opinion her skill and care was necessary for the proper management of this patient. PROCEDURE: The patient brought to the operating room and anesthetized in the supine position. The right leg was visualized under fluoroscopy. Antibiotics were given within an one hour time window and a timeout was done. The lateral side was approached. After exsanguination the tourniquet was inflated to 250 mmHg. A longitudinal incision was made. The fracture was exposed. Multiple clamps used to hold this in proper position. It became clear that this was a pilon variant. There was a fracture of the anterolateral portion of the tibia which was avulsed which included a portion of the syndesmosis. This made this a very unstable fracture. The fibula fracture was comminuted. It was a relatively transverse fracture with minimal posterior spike. The fracture was brought into reduced position. The 2 anterior lateral fragments were held provisionally with 2 pins. The fracture itself was brought into an anatomic reduction. There was some comminution distally. We used a fibular locking plate. The plate was positioned laterally and held with a single screw initially. Multiple distal locking screw were positioned. The fracture was reduced anatomically. 3 screws were placed along the shaft of the plate. A separate screw was placed anterior as a anchor screw using a modified tension band technique. 2 pins were placed in the anterolateral fragments of the tibia and then a #2 FiberWire was used to hold this in proper position. The overall reconstruction was anatomic. The attention directed to the medial side. This was very comminuted. The medial wall was unstable. We needed to use a buttressing type spring plate. The fracture was curetted and irrigated. It was brought into reduced position and held. 2 pins were placed along the region of the medial malleolus distally for cannulated screws. We then positioned a spring plate medially. This was fixated with multiple screws proximally and then 3 small locking screws distally into the distal fragment. 2 cannulated screws were placed across the fracture. There was a separate section of the fracture that extended along the anterior portion of the tibia as another portion of the Cleaning variant. This was held with a single cannulated screw. Intraoperative x-rays were obtained showing anatomic reduction. The wound was irrigated copious with antibiotic irrigation. The lateral wound was closed with 2-0 Vicryl followed by interrupted 3-0 nylon in a mattress fashion. The medial incision was closed with interrupted 3-0 nylon in a mattress fashion. A sterile dressing was applied. A posterior splint was applied. The patient was awakened and taken to the recovery room in satisfactory condition. FINDINGS: This was a highly comminuted fracture with a patient with significant osteopenia. The final fixation was excellent. Alignment was satisfactory. No complication was appreciated. Varun Guerrier MD June 28, 2016 12:28
[2016-06-28] MEDS ORDERED: diphenhydrAMINE HCL 25 MG CAP PO PRN (12:30)
[2016-06-28] MEDS ORDERED: MAGNESIUM HYDROXIDE SUSP 30 ML CUP PO PRN (12:30)
[2016-06-28] MEDS ORDERED: ONDANSETRON HCL 4 MG/2 ML VIAL IVP PRN (12:30)
[2016-06-28] MEDS ORDERED: SODIUM CHLORIDE 0.9% FLUSH 5 ML FLUSH IVF PRN (12:30)
[2016-06-28] MEDS ORDERED: MORPHINE SULFATE 8 MG/ML INJ IV PUSH PRN (12:30)
[2016-06-28] MEDS ORDERED: ACETAMINOPHEN/HYDROcodone 325 MG/5 MG TAB PO PRN (12:30)
[2016-06-28] MEDS ORDERED: NALOXONE HCL 0.4 MG/ML AMP IV PRN (12:30)
[2016-06-28] MEDS ORDERED: Post-op Orders (for Pharmacy) MISC XX ONE (12:30)
[2016-06-28] MEDS ORDERED: ENOX30P SQ (12:32)
[2016-06-28] MEDS ORDERED: HYDR-3580 PO (12:32)
[2016-06-28] MEDS ORDERED: MORPHINE SULFATE 4 MG/ML INJ ONE (12:44)
[2016-06-28] MEDS ORDERED: MIDAZOLAM HCL 2 MG/2 ML VIAL ONE (12:44)
[2016-06-28] MEDS: CALCIUM/VITAMIN D 250 MG/125 U TAB PO SCH ×2 (13:00→17:56)
--- NOTE | 2016-06-28 13:00 | MB ---
cc: CORY MELENDEZ DATE OF CONSULTATION 06/28/[address] Renae REASON FOR CONSULTATION Fracture of the right ankle. HISTORY This is an 89-year-old female otherwise fairly healthy who had dizziness followed by a fall. She denied losing consciousness, but appeared to have a syncopal episode. The patient had no shortness of breath. She had immediate pain in the right ankle and could not walk on this. She was brought to emergency room and was evaluated and treated. She was found to have a displaced fracture of the ankle which was reduced in the emergency room. She was admitted to the medical service and I have been asked to the patient in consultation regarding the same. REVIEW OF SYSTEMS All negative except for a syncopal episode and pain in the right ankle. MEDICAL HISTORY 1. Hyperlipidemia 1. Hypothyroidism disease PAST SURGICAL HISTORY Denies any. ALLERGIES None that are known. SOCIAL HISTORY She drinks one drink of wine daily. No other alcohol or illicit drugs. FAMILY HISTORY Has no significant medical risk factors. PHYSICAL EXAMINATION Alert, cooperative, elderly female appearing her stated age. HEENT: Normocephalic, atraumatic. Pupils equal, round, reactive to light and accommodation. Extraocular motions intact. NECK: Supple. CHEST: Clear. HEART: Regular rate and rhythm. ABDOMEN: Soft and nontender with normoactive sounds. MUSCULOSKELETAL: The patient's right ankle is in a splint. Sensation is normal. Mild swelling. She wiggles her toes. X-rays reviewed and review of the radiologist interpretation shows evidence of a comminuted lateral malleolus fracture with displacement. This is a highly comminuted medial malleolar fracture along the medial portion of the distal tibia. On the lateral x-ray, there is a small posterior malleolar fragment. IMPRESSION Fracture right ankle, trimalleolar equivalent. PLAN Open treatment fixation with plates and screws. CONSENT The are risks with surgery including infection, bleeding, loss of motion, continued pain, need for further surgery, neurologic and vascular injury. The patient understands these issues and wishes to press on with surgery as outlined above. MD KRISTINE Hughes/CHARLENE /12:31 PM /12:53 PM
[2016-06-28] MEDS: cefTRIAXone INJ 1,000 MG in SODIUM CHLORIDE 0.9% INJ 100 ML IV SCH (14:43)
--- NOTE | 2016-06-28 16:39 | RADRPT ---
EXAM DATE/TIME: 06/28/2016 11:54 [facility] COMPARISON: ANKLE RIGHT LIMITED (AP&LAT), June 27, 2016, 13:42. INDICATIONS : ORIF of the right ankle. MEDICAL HISTORY : None. SURGICAL HISTORY : None. ENCOUNTER: Subsequent ACUITY: 2 days PAIN SCORE: Non-responsive. LOCATION: Right ankle. FINDINGS: Interim open reduction internal fixation of distal tibia and fibula fractures. Both bones are now in normal alignment. There is no subluxation of the ankle mortise. Fibular fixation consists of a lateral plate and 8 screws. Tibial fixation consists of a medial plate with at least 6 screws. There are also 3 interfragmentary screws. 2 pins cross the distal tib-fib syndesmosis just above the tibiotalar jointline. CONCLUSION: Interim reduction and fixation of the distal tib-fib fractures/subluxation. Normal alignment area no acute complication demonstrated. Jb Rowe MD on June 28, 2016 at 16:35 Board Certified Radiologist. This report was verified electronically.
--- NOTE | 2016-06-28 18:47 | EKG ---
Date Performed: 06/27/2016 Time Performed: 12:41:01 PTAGE: 89 years EKG: Sinus rhythm WITH SHORT LA INTERVAL NONSPECIFIC ST & T-WAVE ABNORMALITY ABNORMAL ECG NO PREVIOUS TRACING DOCTOR: Carter Randall Interpretating Date/Time 06/28/2016 18:43:44
[2016-06-28] MEDS: SODIUM CHLORIDE 0.9% FLUSH 5 ML FLUSH IVF SCH (20:28)
[2016-06-28] MEDS: DOCUSATE SODIUM 50 MG/SENNA 8.6 MG TAB PO SCH (20:58)
[2016-06-28] MEDS: ACETAMINOPHEN/HYDROcodone 325 MG/5 MG TAB PO PRN (20:58)
[2016-06-29] MEDS: ENOXAPARIN SODIUM 30 MG/0.3 ML SYRINGE SQ SCH ×2 (00:14→23:52)
[2016-06-29] MEDS ORDERED: ENOXAPARIN SODIUM 30 MG/0.3 ML SYRINGE SQ SCH (00:30)
[2016-06-29 00:37] VITALS: BP 114/56; PULSE 63; RESP 17; TEMP 97; O2SAT 96
[2016-06-29 04:45] VITALS: BP 130/63; PULSE 64; RESP 17; TEMP 96.5; O2SAT 98
[2016-06-29] MEDS: LEVOTHYROXINE SODIUM 25 MCG TAB PO SCH (04:54)
[2016-06-29] MEDS ORDERED: WALKER WHEELS/F1 MIS (07:45)
--- NOTE | 2016-06-29 07:45 | PD.ORT.PN ---
Subjective Subjective Remarks Mild to moderate right ankle pain. She states she gets throbbing into the foot. No loss sensation but feels heavy. No chest pain or SOB. No new leg pain. No other complaints. Questions about surgery and discharge. Her family lives out of town. Objective Vitals Vital Signs Date Time Temp Pulse Resp B/P Pulse Ox O2 Delivery O2 Flow Rate FiO2 06/29/16 04:45 96.5 64 17 130/63 98 06/29/16 00:37 97.0 63 17 114/56 96 06/28/16 20:35 97.8 75 17 104/51 98 06/28/16 16:00 97.0 66 16 128/58 97 06/28/16 13:49 98 Nasal Cannula 3.00 06/28/16 13:30 98.1 73 12 151/66 100 Nasal Cannula 2 06/28/16 13:15 67 12 146/63 100 Nasal Cannula 2 06/28/16 13:00 74 12 143/66 100 Nasal Cannula 2 06/28/16 12:45 56 12 113/54 100 Nasal Cannula 2 06/28/16 12:35 97.7 57 12 116/56 100 06/28/16 12:00 96.2 67 16 143/64 97 06/28/16 08:00 96.3 66 16 142/65 97 I/O 06/28/16 06/28/16 06/28/16 06/29/16 06/29/16 06/29/16 07:00 15:00 23:00 07:00 15:00 23:00 Intake Total 0 ml 1200 ml 240 ml 120 ml Output Total 50 ml Balance 0 ml 1150 ml 240 ml 120 ml Intake Oral 0 ml 240 ml 120 ml Other 1200 ml Output Estimated Blood Loss 50 ml # Voids 1 4 0 2 # Bowel Movements 0 0 0 0 Result Diagram: 06/28/16 0425 06/28/16 0425 Objective Remarks Sitting up in bed NAD VSS RLE Splint/dressing intact, C/D/I, mild swelling toes, wiggles toes freely +ehl 06/29, +sens, cap refill less than 2 secs Assessment & Plan Ortho Post Op Day #: 1 Problem List: Assessment and Plan pod#1 ORIF R Ankle, trimall equivalent Ortho stable Pain controlled on PO meds. Lovenox for dvt prophylaxis Continue splint and dressings. Do not change. Do not get wet. NonWBing RLE. Walker as gait assist. Med care as needed. D/C planning, likely d/c to rehab tomorrow (admit was on night I believe). F/U in 2 weeks at [facility]. Daughter Bettina - spoke to her on phone yesterday afternoon and also prefers SNF. Chayito Mathew June 29, 2016 07:45
[2016-06-29 08:00] VITALS: BP 100/45; PULSE 71; RESP 16; TEMP 97.3; O2SAT 97
[2016-06-29] MEDS: LACTATED RINGER'S 1000 ML INJ 1,000 ML IV SCH ×2 (08:16→17:46)
[2016-06-29] MEDS: SODIUM CHLORIDE 0.9% FLUSH 5 ML FLUSH IVF SCH ×2 (09:00→19:54)
[2016-06-29] MEDS: MULTIVITAMINS/MINERALS THERAPEUTIC TAB PO SCH (09:15)
[2016-06-29] MEDS: DOCUSATE SODIUM 50 MG/SENNA 8.6 MG TAB PO SCH ×2 (09:15→19:54)
[2016-06-29] MEDS: THIAMINE HCL 100 MG TAB PO SCH (09:15)
[2016-06-29] MEDS: CALCIUM/VITAMIN D 250 MG/125 U TAB PO SCH ×3 (09:15→17:18)
[2016-06-29] MEDS: PRAVASTATIN SOD 40 MG TAB PO SCH (09:15)
[2016-06-29] MEDS: ACETAMINOPHEN/HYDROcodone 325 MG/5 MG TAB PO PRN ×2 (09:16→19:54)
[2016-06-29 12:00] VITALS: BP 119/56; PULSE 70; RESP 16; TEMP 96.3; O2SAT 96
--- NOTE | 2016-06-29 13:07 | HHI.PR ---
Subjective Remarks Pain is controlled by meds. No fever or chills. No n/v/d/c. Eating well. No chest pain. Awaiting PT Objective Vitals Vital Signs Date Time Temp Pulse Resp B/P Pulse Ox O2 Delivery O2 Flow Rate FiO2 06/29/16 08:00 97.3 71 16 100/45 97 06/29/16 04:45 96.5 64 17 130/63 98 06/29/16 00:37 97.0 63 17 114/56 96 06/28/16 20:35 97.8 75 17 104/51 98 06/28/16 16:00 97.0 66 16 128/58 97 06/28/16 13:49 98 Nasal Cannula 3.00 06/28/16 13:30 98.1 73 12 151/66 100 Nasal Cannula 2 06/28/16 13:15 67 12 146/63 100 Nasal Cannula 2 I/O 06/28/16 06/28/16 06/28/16 06/29/16 06/29/16 06/29/16 07:00 15:00 23:00 07:00 15:00 23:00 Intake Total 0 ml 1200 ml 240 ml 120 ml Output Total 50 ml Balance 0 ml 1150 ml 240 ml 120 ml Intake Oral 0 ml 240 ml 120 ml Other 1200 ml Output Estimated Blood Loss 50 ml # Voids 1 4 0 2 # Bowel Movements 0 0 0 0 Result Diagram: 06/28/16 0425 06/28/16 0425 Imaging Last Impressions Ankle X-Ray 06/28/16 0000 Signed Impressions: Service Date/Time: June 11:54 - CONCLUSION: Interim reduction and fixation of the distal tib-fib fractures/subluxation. Normal alignment area no acute complication demonstrated. Jb Rowe MD Head CT 06/27/16 1233 Signed Impressions: Service Date/Time: Monday, June 27, 2016 13:56 - CONCLUSION: 1. No acute infarct, acute hemorrhage, mass effect or extra-axial fluid collections. 2. Mild age-related volume loss. 3. Minimal periventricular/subcortical white matter small vessel ischemic changes bilaterally. Andrea Heredia MD Chest X-Ray 06/27/16 1233 Signed Impressions: Service Date/Time: Monday, June 27, 2016 12:55 - CONCLUSION: 1. No acute cardiopulmonary findings Antony Perez MD Cervical Spine CT 06/27/16 1233 Signed Impressions: Service Date/Time: Monday, June 27, 2016 13:59 - CONCLUSION: 1. No acute fracture or prevertebral soft tissue swelling. 2. Minimal spinal stenosis and moderate bilateral foraminal narrowing at C5-6. 3. Mild bilateral foraminal narrowing at C3-4. 4. Grade I retrolisthesis of C5 in relation to C6. 5. Cervical spondylosis at C4-5, C5-6 and to a lesser extent at C3-4 and C6-7. 6. 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 7. Multiple thyroid nodules noted. Thyroid ultrasound may be helpful for further evaluation if clinically indicated and can be performed as an outpatient. Andrea Heredia MD Carotid Artery Ultrasound 06/27/16 0000 Signed Impressions: Service Date/Time: Monday, June 27, 2016 14:43 - CONCLUSION: No evidence of flow-limiting carotid stenosis. Jb Narayan MD Objective Remarks GENERAL: This is a well-nourished, well-developed patient, in no apparent distress. SKIN: No rashes, ecchymoses or lesions. Cool and dry. HEAD: Atraumatic. Normocephalic. No temporal or scalp tenderness. EYES: Pupils equal round and reactive. Extraocular motions intact. No scleral icterus. No injection or drainage. ENT: Nose without bleeding, purulent drainage or septal hematoma. Throat without erythema, tonsillar hypertrophy or exudate. Uvula midline. Airway patent. NECK: Trachea midline. No JVD or lymphadenopathy. Supple, nontender, no meningeal signs. CARDIOVASCULAR: Regular rate and rhythm without murmurs, gallops, or rubs. RESPIRATORY: Clear to auscultation. Breath sounds equal bilaterally. No wheezes , rales, or rhonchi. GASTROINTESTINAL: Abdomen soft, non-tender, nondistended. No hepato-splenomegaly , or palpable masses. No guarding. MUSCULOSKELETAL: Right lower extremity in cast, left lower extremity no edema or cyanosis bilaterally. NEUROLOGICAL: Awake and alert. Cranial nerves II through XII intact. Motor and sensory grossly within normal limits. Five out of 5 muscle strength in all muscle groups except right lower extremity due to the fracture. Normal speech. Procedures s/p Open treatment into fixation right distal tibia fracture, pilon variant with open treatment internal fixation right ankle fracture by Dr Mayra Guerrier on 06/28/16 A/P Assessment and Plan 89 years old female history of hyperlipidemia and hypothyroidism admitted with Episode of dizziness presyncope could be related to UTI UTI Status post fall right ankle fracture History of hypertension History of hypothyroidism DVT prophylaxis Plan: Right ankle pilon variant with lateral malleolar fracture s/p Open treatment into fixation right distal tibia fracture, pilon variant with open treatment internal fixation right ankle fracture by Dr Mayra Guerrier on 06/28/16 2-D echo reviewed personally by me EF 70%, carotid ultrasound unremarkable pain management with [place] and morphine Orthopedic consulted, stabilizing cast and surgery in a.m. if cleared Patient denied any complain of chest pain or short of breath on exertion she stated she is able to walk more than 4 blocks or 2 stairs okay, cycling cardiac enzyme was negative, Rocephin for UTI Vasotec when necessary for hypertension Morphine and SCD for DVT prophylaxis Plan to DC to SNF poss tomorrow per Gina Garza MD June 29, 2016 13:07
--- NOTE | 2016-06-29 14:01 | HHI.DS ---
Discharge Summary Admission Date June 27, 2016 at 14:22 Discharge Date: June 30, 2016 Admitting Diagnosis near syncope, right ankle fracture (1) Ankle fracture, right ICD Code: S82.891A (2) UTI (urinary tract infection) ICD Code: N39.0 (3) Closed trimalleolar fracture of right ankle ICD Code: S82.851A Procedures s/p Open treatment into fixation right distal tibia fracture, pilon variant with open treatment internal fixation right ankle fracture by Dr Mayra Guerrier on 06/28/16 Brief History - From Admission 89 years old female with history of hyperlipidemia hypothyroidism presented to the ED complaining of episodes of dizziness which make her fall down patient denied losing consciousness, denied feeling chest in palpitation short of breath , headache blurry vision prior to the episode. Patient complained of right ankle pain and with x-ray it did showed fracture. Patient stated that the bone appeared to be sticking out so she popped it and again. Currently no other symptoms such as abdominal pain diarrhea constipation dysuria urgency frequency , orthopedic consulted stabilizing casts applied, plan for surgery tomorrow if cleared medically CBC/BMP: 06/28/16 0425 06/28/16 0425 Significant Findings Laboratory Tests Test 06/27/16 06/27/16 06/27/16 06/27/16 12:39 14:13 16:30 23:12 Activated Partial 23.3 SEC Thromboplast Time (24.3-30.1) Estimat Glomerular Filtration 58 ML/MIN (>89) Rate Troponin I LESS THAN 0.02 LESS THAN 0.02 LESS THAN 0.02 NG/ML NG/ML NG/ML (0.02-0.05) (0.02-0.05) (0.02-0.05) Urine Turbidity HAZY (CLEAR) Urine Ketones 10 mg/dL (NEG) Urine Leukocyte Esterase LARGE (NEG) Urine WBC 40 /hpf (0-5) Urine WBC Clumps RARE (NONE) Urine Bacteria MANY /hpf (NONE) Urine Mucus MOD /lpf (OCC) Test 06/28/16 04:25 Red Blood Count 3.51 MIL/MM3 (4.00-5.30) Hemoglobin 9.9 GM/DL (11.6-15.3) Hematocrit 29.9 % (35.0-46.0) Neutrophils (%) (Auto) 71.4 % (16.0-70.0) Monocytes (%) (Auto) 8.8 % (0.0-8.0) Chloride Level 108 MEQ/L (98-107) Estimat Glomerular Filtration 81 ML/MIN (>89) Rate Troponin I LESS THAN 0.02 NG/ML (0.02-0.05) Imaging Last Impressions Ankle X-Ray 06/28/16 0000 Signed Impressions: Service Date/Time: June 11:54 - CONCLUSION: Interim reduction and fixation of the distal tib-fib fractures/subluxation. Normal alignment area no acute complication demonstrated. Jb Rowe MD Head CT 06/27/16 1233 Signed Impressions: Service Date/Time: Monday, June 27, 2016 13:56 - CONCLUSION: 1. No acute infarct, acute hemorrhage, mass effect or extra-axial fluid collections. 2. Mild age-related volume loss. 3. Minimal periventricular/subcortical white matter small vessel ischemic changes bilaterally. Andrea Heredia MD Chest X-Ray 06/27/16 1233 Signed Impressions: Service Date/Time: Monday, June 27, 2016 12:55 - CONCLUSION: 1. No acute cardiopulmonary findings Antony Perez MD Cervical Spine CT 06/27/16 1233 Signed Impressions: Service Date/Time: Monday, June 27, 2016 13:59 - CONCLUSION: 1. No acute fracture or prevertebral soft tissue swelling. 2. Minimal spinal stenosis and moderate bilateral foraminal narrowing at C5-6. 3. Mild bilateral foraminal narrowing at C3-4. 4. Grade I retrolisthesis of C5 in relation to C6. 5. Cervical spondylosis at C4-5, C5-6 and to a lesser extent at C3-4 and C6-7. 6. 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 7. Multiple thyroid nodules noted. Thyroid ultrasound may be helpful for further evaluation if clinically indicated and can be performed as an outpatient. Andrea Heredia MD Carotid Artery Ultrasound 06/27/16 0000 Signed Impressions: Service Date/Time: Monday, June 27, 2016 14:43 - CONCLUSION: No evidence of flow-limiting carotid stenosis. Jb Narayan MD PE at Discharge GENERAL: This is a well-nourished, well-developed patient, in no apparent distress. SKIN: No rashes, ecchymoses or lesions. Cool and dry. HEAD: Atraumatic. Normocephalic. No temporal or scalp tenderness. EYES: Pupils equal round and reactive. Extraocular motions intact. No scleral icterus. No injection or drainage. ENT: Nose without bleeding, purulent drainage or septal hematoma. Throat without erythema, tonsillar hypertrophy or exudate. Uvula midline. Airway patent. NECK: Trachea midline. No JVD or lymphadenopathy. Supple, nontender, no meningeal signs. CARDIOVASCULAR: Regular rate and rhythm without murmurs, gallops, or rubs. RESPIRATORY: Clear to auscultation. Breath sounds equal bilaterally. No wheezes , rales, or rhonchi. GASTROINTESTINAL: Abdomen soft, non-tender, nondistended. No hepato-splenomegaly , or palpable masses. No guarding. MUSCULOSKELETAL: Right lower extremity in cast, left lower extremity no edema or cyanosis bilaterally. NEUROLOGICAL: Awake and alert. Cranial nerves II through XII intact. Motor and sensory grossly within normal limits. Five out of 5 muscle strength in all muscle groups except right lower extremity due to the fracture. Normal speech. Hospital Course 89 years old female history of hyperlipidemia and hypothyroidism admitted with Episode of dizziness presyncope could be related to UTI UTI Status post fall right ankle fracture History of hypertension History of hypothyroidism DVT prophylaxis Plan: Right ankle pilon variant with lateral malleolar fracture s/p Open treatment into fixation right distal tibia fracture, pilon variant with open treatment internal fixation right ankle fracture by Dr Mayra Guerrier on 06/28/16 2-D echo reviewed personally by me EF 70%, carotid ultrasound unremarkable pain management with [place] and morphine Orthopedic consulted, stabilizing cast and surgery in a.m. if cleared Patient denied any complain of chest pain or short of breath on exertion she stated she is able to walk more than 4 blocks or 2 stairs okay, cycling cardiac enzyme was negative, Rocephin for UTI Vasotec when necessary for hypertension SCD for DVT prophylaxis Patient improved. She was DC to SNF in stable condition. To follow up as OP with PCP and consultants. Pt Condition on Discharge: Stable Discharge Disposition: Discharge to SNF Discharge Time: > 30 minutes Discharge Instructions DIET: Follow Instructions for: Heart Healthy Diet Activities you can perform: Non Weight Bearing (affected limb until cleared by ortho , Continue Splint. Do not remove, do not get wet.) Activities to Avoid: Driving Follow up Referrals: Appointment for Follow Up - 2 Weeks with Varun Guerrier MD PCP Follow-up - 3-5 Days New Medications: Walker with Front Wheels (Walker with Front Wheels) 1 Mis Mis 1 EA .ROUTE DIRECTED #1 Ref 0 EA Enoxaparin Inj (Lovenox Inj) 30 Mg/0.3 Ml Syr 30 MG SQ Q24H Prevent Blood Clot #15 INJECTION Hydrocodone-Acetaminophen (Hydrocodone-Acetaminophen) 7.5-325 mg Tab 1 TAB PO Q4H PRN PAIN SCALE 6 TO 10 #50 TAB Continued Medications: Aspirin (Aspirin Low Dose) 81 Mg Chew 81 MG CHEW DAILY Ref 0 TAB Levothyroxine (Levothyroxine) 25 Mcg Tab 25 MCG PO DAILY Thyroid #30 Ref 0 TAB Lovastatin (Lovastatin) 40 Mg Tab 40 MG PO DAILY Cholesterol Management #30 Ref 0 TAB Gina Calhoun MD June 29, 2016 14:01
[2016-06-29 16:00] VITALS: BP 109/60; PULSE 76; RESP 16; TEMP 98.4; O2SAT 98
[2016-06-29] MEDS: cefTRIAXone INJ 1,000 MG in SODIUM CHLORIDE 0.9% INJ 100 ML IV SCH (17:17)
[2016-06-29 20:00] VITALS: BP 153/62; PULSE 72; RESP 22; TEMP 97.6; O2SAT 96
[2016-06-30] VITALS: BP 136/71; PULSE 70; RESP 20; TEMP 96.5; O2SAT 97
[2016-06-30] MEDS: LACTATED RINGER'S 1000 ML INJ 1,000 ML IV SCH (00:16)
[2016-06-30 04:00] VITALS: BP 139/68; PULSE 69; RESP 18; TEMP 96.7; O2SAT 97
[2016-06-30] MEDS: LEVOTHYROXINE SODIUM 25 MCG TAB PO SCH (04:08)
[2016-06-30] MEDS: ACETAMINOPHEN/HYDROcodone 325 MG/5 MG TAB PO PRN (04:08)
--- NOTE | 2016-06-30 06:41 | PD.ORT.PN ---
Subjective Subjective Remarks POD 2 s/p ORIF right ankle doing well. pain controlled. reports out of bed to bathroom with minimal difficulty Objective Vitals Vital Signs Date Time Temp Pulse Resp B/P Pulse Ox O2 Delivery O2 Flow Rate FiO2 06/30/16 04:00 96.7 69 18 139/68 97 06/30/16 00:00 96.5 70 20 136/71 97 06/29/16 20:00 97.6 72 22 153/62 96 06/29/16 16:00 98.4 76 16 109/60 98 06/29/16 12:00 96.3 70 16 119/56 96 06/29/16 08:00 97.3 71 16 100/45 97 I/O 06/29/16 06/29/16 06/29/16 06/30/16 06/30/16 06/30/16 07:00 15:00 23:00 07:00 15:00 23:00 Intake Total 120 ml 480 ml 780 ml 240 ml Balance 120 ml 480 ml 780 ml 240 ml Intake Oral 120 ml 480 ml 780 ml 240 ml # Voids 2 3 2 3 # Bowel Movements 0 0 1 3 Result Diagram: 06/28/16 0425 06/28/16 0425 Objective Remarks Sitting up in bed NAD VSS RLE Splint/dressing intact, C/D/I, mild swelling toes, wiggles toes freely +ehl 5/5, +sens, cap refill less than 2 secs Assessment & Plan Assessment and Plan pod#2 ORIF R Ankle, trimall equivalent Ortho stable Pain controlled on PO meds. Lovenox for dvt prophylaxis Continue splint and dressings. Do not change. Do not get wet. NonWBing RLE. Walker as gait assist. Med care as needed. D/C to SNF today - ortho cleared F/U in 2 weeks at [facility]. Rl Frederick June 30, 2016 06:41
[2016-06-30] MEDS: CALCIUM/VITAMIN D 250 MG/125 U TAB PO SCH ×2 (07:24→12:05)
[2016-06-30] MEDS: PRAVASTATIN SOD 40 MG TAB PO SCH (07:25)
[2016-06-30] MEDS: DOCUSATE SODIUM 50 MG/SENNA 8.6 MG TAB PO SCH (07:25)
[2016-06-30] MEDS: THIAMINE HCL 100 MG TAB PO SCH (07:25)
[2016-06-30] MEDS: MULTIVITAMINS/MINERALS THERAPEUTIC TAB PO SCH (07:25)
[2016-06-30] MEDS: SODIUM CHLORIDE 0.9% FLUSH 5 ML FLUSH IVF SCH (07:26)
[2016-06-30 07:28] VITALS: PULSE 67
[2016-06-30 08:02] VITALS: BP 133/64; PULSE 66; RESP 16; TEMP 95.7; O2SAT 98
[2016-06-30 10:48] VITALS: O2SAT 96
[2016-06-30 11:17] VITALS: BP 153/64; PULSE 78; RESP 16; TEMP 96.1; O2SAT 98
--- NOTE | 2016-06-30 13:17 | HHI.PR ---
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 Says she was not sleeping well last night, says she had to go to the bath after water pill. No fever or chills. No n/v/. Pain is controlled by meds. Objective Vitals Vital Signs Date Time Temp Pulse Resp B/P Pulse Ox O2 Delivery O2 Flow Rate FiO2 06/30/16 11:17 96.1 78 16 153/64 98 06/30/16 10:48 96 21 06/30/16 08:02 95.7 66 16 133/64 98 06/30/16 07:28 67 06/30/16 04:00 96.7 69 18 139/68 97 06/30/16 00:00 96.5 70 20 136/71 97 06/29/16 20:00 97.6 72 22 153/62 96 06/29/16 16:00 98.4 76 16 109/60 98 I/O 06/29/16 06/29/16 06/29/16 06/30/16 06/30/16 06/30/16 07:00 15:00 23:00 07:00 15:00 23:00 Intake Total 120 ml 480 ml 780 ml 240 ml Balance 120 ml 480 ml 780 ml 240 ml Intake Oral 120 ml 480 ml 780 ml 240 ml # Voids 2 3 2 3 # Bowel Movements 0 0 1 3 Result Diagram: 06/28/16 0425 06/28/16 0425 Imaging Last Impressions Ankle X-Ray 06/28/16 0000 Signed Impressions: Service Date/Time: June 11:54 - CONCLUSION: Interim reduction and fixation of the distal tib-fib fractures/subluxation. Normal alignment area no acute complication demonstrated. Jb Rowe MD Head CT 06/27/16 1233 Signed Impressions: Service Date/Time: Monday, June 27, 2016 13:56 - CONCLUSION: 1. No acute infarct, acute hemorrhage, mass effect or extra-axial fluid collections. 2. Mild age-related volume loss. 3. Minimal periventricular/subcortical white matter small vessel ischemic changes bilaterally. Andrea Heredia MD Chest X-Ray 06/27/163 Signed Impressions: Service Date/Time: Monday, June 27, 2016 12:55 - CONCLUSION: 1. No acute cardiopulmonary findings Antony Perez MD Cervical Spine CT 06/27/16 1233 Signed Impressions: Service Date/Time: Monday, June 27, 2016 13:59 - CONCLUSION: 1. No acute fracture or prevertebral soft tissue swelling. 2. Minimal spinal stenosis and moderate bilateral foraminal narrowing at C5-6. 3. Mild bilateral foraminal narrowing at C3-4. 4. Grade I retrolisthesis of C5 in relation to C6. 5. Cervical spondylosis at C4-5, C5-6 and to a lesser extent at C3-4 and C6-7. 6. 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 7. Multiple thyroid nodules noted. Thyroid ultrasound may be helpful for further evaluation if clinically indicated and can be performed as an outpatient. Andrea Heredia MD Carotid Artery Ultrasound 06/27/16 0000 Signed Impressions: Service Date/Time: Monday, June 27, 2016 14:43 - CONCLUSION: No evidence of flow-limiting carotid stenosis. Jb Narayan MD Objective Remarks GENERAL: This is a well-nourished, well-developed patient, in no apparent distress. SKIN: No rashes, ecchymoses or lesions. Cool and dry. HEAD: Atraumatic. Normocephalic. No temporal or scalp tenderness. EYES: Pupils equal round and reactive. Extraocular motions intact. No scleral icterus. No injection or drainage. ENT: Nose without bleeding, purulent drainage or septal hematoma. Throat without erythema, tonsillar hypertrophy or exudate. Uvula midline. Airway patent. NECK: Trachea midline. No JVD or lymphadenopathy. Supple, nontender, no meningeal signs. CARDIOVASCULAR: Regular rate and rhythm without murmurs, gallops, or rubs. RESPIRATORY: Clear to auscultation. Breath sounds equal bilaterally. No wheezes , rales, or rhonchi. GASTROINTESTINAL: Abdomen soft, non-tender, nondistended. No hepato-splenomegaly , or palpable masses. No guarding. MUSCULOSKELETAL: Right lower extremity in cast, left lower extremity no edema or cyanosis bilaterally. NEUROLOGICAL: Awake and alert. Cranial nerves II through XII intact. Motor and sensory grossly within normal limits. Five out of 5 muscle strength in all muscle groups except right lower extremity due to the fracture. Normal speech. Procedures s/p Open treatment into fixation right distal tibia fracture, pilon variant with open treatment internal fixation right ankle fracture by Dr Mayra Guerrier on 06/28/16 A/P Assessment and Plan 89 years old female history of hyperlipidemia and hypothyroidism admitted with Episode of dizziness presyncope could be related to UTI UTI Status post fall right ankle fracture History of hypertension History of hypothyroidism DVT prophylaxis Plan: Right ankle pilon variant with lateral malleolar fracture s/p Open treatment into fixation right distal tibia fracture, pilon variant with open treatment internal fixation right ankle fracture by Dr Mayra Guerrier on 06/28/16 2-D echo reviewed personally by me EF 70%, carotid ultrasound unremarkable pain management with [place] and morphine Orthopedic consulted, stabilizing cast and surgery in a.m. if cleared Patient denied any complain of chest pain or short of breath on exertion she stated she is able to walk more than 4 blocks or 2 stairs okay, cycling cardiac enzyme was negative, Rocephin for UTI Vasotec when necessary for hypertension Morphine and SCD for DVT prophylaxis Plan to DC to SNF Gina Calhoun MD June 30, 2016 13:17
[2016-06-30] MEDS ORDERED: TEMAZEPAM 15 MG CAP PO PRN (13:30)
== END 2016-06-30 14:13 | DRG 493 ==
LOC: NEPC 12:13 → NEDA 14:22 → NEPFCDU 16:57 → N06A 22:37
PROVIDERS: ADMIT Hospitalist; ATTEND Hospitalist
PROC: 0QSJ04Z Reposition Right Fibula with Internal Fixation Device, Open Approach (ICD-10-PCS; 2016-06-28)
PROC: 0QSG04Z Reposition Right Tibia with Internal Fixation Device, Open Approach (ICD-10-PCS; principal; 2016-06-28 10:05)
DX: S82.871A Displaced pilon fracture of right tibia, initial encounter for closed fracture (principal); N39.0 Urinary tract infection, site not specified; W18.39XA Other fall on same level, initial encounter; Y92.009 Unspecified place in unspecified non-institutional (private) residence as the place of occurrence of the external cause; E78.5 Hyperlipidemia, unspecified; E03.9 Hypothyroidism, unspecified; B96.20 Unspecified Escherichia coli [E. coli] as the cause of diseases classified elsewhere; I10 Essential (primary) hypertension; K21.9 Gastro-esophageal reflux disease without esophagitis
CPT/HCPCS: 70450; 71010; 72125; 73600; 73610; 76000; 76937; 80048; 81001; 82550; 82552; 82746; 82948; 83735; 84484; 85025; 85610; 85730; 87077; 87086; 87186; 93005; 93306; 93880; 96374; 96375; C1713; J0131; J0690; J0696; J1170; J1580; J1644; J1650; J2250; J2270; J2405; J3010; J7030; J7040; J7120